=== PATIENT | female | born 1975 | race Caucasian/White ===

== ENCOUNTER 2017-06-06 18:08 | Emergency (ER) | payer MEDICAID ==
[~2017-06-06] VITALS: Ht 162.6 cm; Wt 78.0 kg
[~2017-06-06 18:08] MED LIST: ALBUTEROL MDI; ASPI-515 PO; CITA40TA5 PO; LISI5TAB7 PO; [UNRECOGNIZED DRUG - OTHER]
[2017-06-06] MEDS ORDERED: ALBUTEROL/IPRATROPIUM 2.5MG/0.5MG, 3 ML NPPB SCH (18:30)
[2017-06-06] MEDS ORDERED: ALBUTEROL/IPRATROPIUM 2.5MG/0.5MG, 3 ML ONE (18:59)
[2017-06-06 19:04] LABS: HEMATOCRIT 39.2 % (34.6-47.8); HEMOGLOBIN 12.6 g/dL (11.7-16.4); WHITE BLOOD COUNT 12.6 x10^3/uL (3.4-10)
[2017-06-06 19:14] LABS: BLOOD UREA NITROGEN 15 mg/dL (7-18)
[2017-06-06] MEDS ORDERED: SODIUM CHLORIDE FLUSH 10ML SYR IVF ONE (20:30)
[2017-06-06] MEDS ORDERED: SODIUM CHLORIDE 0.9% 1,000ML IVBOLUS ONE (20:30)
[2017-06-06 21:42] VITALS: BP 124/66
== END 2017-06-06 22:15 | disposition home or self-care (01) ==
LOC: ED 20:09
DX: R55 Syncope and collapse (principal); J20.9 Acute bronchitis, unspecified; I10 Essential (primary) hypertension; E11.9 Type 2 diabetes mellitus without complications
CPT/HCPCS: 36415; 71020; 80048; 82040; 83605; 84145; 85025; 87040; 93005; 94640; 96360; 99285; J7030; J7620

== ENCOUNTER → 2017-09-26 | Outpatient (CLI) | payer MEDICAID | END | disposition home or self-care (01) | LOC: CVU 12:39 | PROVIDERS: ATTEND Internal Medicine Pulmonary Disease | DX: I35.1 Nonrheumatic aortic (valve) insufficiency (principal); E11.9 Type 2 diabetes mellitus without complications; Z87.891 Personal history of nicotine dependence | CPT/HCPCS: 93306 ==